=== PATIENT | female | born 1985 | race Caucasian/White ===

== ENCOUNTER 2016-10-05 06:28 | Day surgery (SDC) | payer BC ==
[2016-10-03 17:44] LABS: HEMATOCRIT 36.9 % (36.0-48.0); HEMOGLOBIN 12.2 g/dL (12.0-16.0)
[2016-10-03 18:09] LABS: A/G RATIO 1.3 (0.7-1.9); ALBUMIN 3.9 G/DL (3.5-5.0); ALKALINE PHOSPHATASE 65 U/L (45-117); BUN (BLOOD UREA NITROGEN) 18 MG/DL (6-23); CALCIUM, SERUM 8.9 MG/DL (8.5-10.4); CHLORIDE, SERUM 106 MMOL/L (96-112); CO2 (CARBON DIOXIDE) 26 MMOL/L (24-34); CREATININE 0.69 MG/DL (0.55-1.02); GFR AFRICAN AMERICAN 133 ML/MIN (>=60); GFR NON AFRICAN AMERICAN 114 ML/MIN (>=60); GLUCOSE, SERUM 101 MG/DL (60-99); POTASSIUM, SERUM 3.5 MMOL/L (3.5-5.3); SGOT(AST) 11 U/L (5-40); SGPT(ALT) 19 U/L (5-65); SODIUM, SERUM 141 MMOL/L (135-148); TOTAL BILIRUBIN 0.2 MG/DL (0-1.2); TOTAL PROTEIN 6.9 G/DL (6.0-8.5)
--- NOTE | ~2016-10-05 | OP ---
Record Of Operation [facility] [address] [place]. [address] NAME: ADRIANE THOMAS : 81 STATUS : REG [facility] PAT#: [id number] AGE: 31 ADM/REG DATE : 10/05/16 MR#: [id number] REPORT SERV DATE: 10/05/16 DICTATED BY: LUCIUS ALONZO DATE: 10/05/16 REPORT STATUS : Draft TRANSCRIBED BY: MODL DATE: 10/05/16 DATE OF PROCEDURE: 10/05/2016 PREOPERATIVE DIAGNOSIS: Symptomatic cholelithiasis with chronic cholecystitis. POSTOPERATIVE DIAGNOSIS: Symptomatic cholelithiasis with chronic cholecystitis. PROCEDURE: Laparoscopic cholecystectomy. ANESTHESIA: General. SURGEON: Lucius Alonzo M.D. ELECTRIC HOIST OPERATOR: Graeme. COMPLICATIONS: None. DRAINS: None. ESTIMATED BLOOD LOSS: 20 mL. FLUIDS: 1000 mL. FINDINGS: The patient was noted to have cholelithiasis with normal preoperative liver function studies and normal-sized cystic duct. She had some mild thickening of the gallbladder consistent with chronic cholecystitis. OPERATIVE TECHNIQUE: The patient was brought to the operating room and placed on the table in the supine position. She had preoperative IV antibiotics. She had sequential hose in place. She voided prior to the procedure. She underwent general endotracheal anesthesia and was prepped and draped in sterile fashion, and a time-out was completed. Local anesthesia was instilled to the periumbilical skin. A 15 blade knife was used to make incision through the base of the umbilicus. The skin and fascia were elevated and the Veress needle was inserted. The water drop test was then safely performed. An 11 mm trocar was inserted through the umbilicus followed by the laparoscope. There was no evidence of Veress or trocar injury. The patient was then placed in reverse Trendelenburg and rolled to the left. An 11 mm subxiphoid and two 5 mm right upper quadrant trocars were placed under direct visualization. The gallbladder fundus was grasped and elevated over the liver edge. The infundibulum was then retracted inferolaterally. The patient was noted to have a short cystic duct close to the common bile duct that was visualized secondary to paucity of visceral fat. The cystic duct-gallbladder junction was identified on its lateral aspect and carefully bluntly dissected until it was seen circumferentially. After it was seen in 360 degrees, it was clipped twice proximally and distally and divided between the clips. Dissection more medial revealed the cystic artery on the gallbladder wall. It was very small and was encircled in 360 degrees and then slowly cauterized and divided. The gallbladder was then removed from the fossa using electrocautery hook and extracted through Record Of Operation [facility] [address] [place]. [address] NAME: ADRIANE THOMAS : 81 STATUS : REG [facility] PAT#: [id number] AGE: 31 ADM/REG DATE : 10/05/16 MR#: [id number] REPORT SERV DATE: 10/05/16 DICTATED BY: LUCIUS ALONZO DATE: 10/05/16 REPORT STATUS : Draft TRANSCRIBED BY: TRUDY DATE: 10/05/16 the umbilicus. The laparoscope and trocar were reinserted. Examination of the hepatic fossa was noted to be hemostatic. The clips were noted to be intact without encroachment of the common bile duct. As there was no evidence of any other visual abnormalities, all the instruments and trocars were removed under direct visualization. The umbilical fascia was reapproximated using a [id number] Vicryl suture. The skin edges were reapproximated using absorbable subcuticular Monocryl sutures. Dermabond was applied. She was extubated and taken to the recovery room in stable condition. All sponge and needle counts were reported correct. BI/TRUDY Lucius Alonzo M.D. / [id number] CC: Latoya Mendoza LAURIE
[~2016-10-05 06:28] MED LIST: ASPIRIN; [UNRECOGNIZED DRUG - OTHER]; [UNRECOGNIZED DRUG - OTHER]
== END 2016-10-05 16:33 | disposition home or self-care (01) ==
LOC: SDC 06:28
PROVIDERS: Surgery
PROC: 0FT44ZZ Resection of Gallbladder, Percutaneous Endoscopic Approach (ICD-10-PCS; principal; 2016-10-05 07:45)
DX: K80.10 Calculus of gallbladder with chronic cholecystitis without obstruction (principal); E66.9 Obesity, unspecified; D64.9 Anemia, unspecified; K21.9 Gastro-esophageal reflux disease without esophagitis; Z87.891 Personal history of nicotine dependence; Z98.890 Other specified postprocedural states
CPT/HCPCS: 80053; 84703; 85014; 85018; 88304; A9270-GY; J0690; J1170; J1885; J2250; J2405; J2710; J3010